=== PATIENT | male | born 1990 | race Asian ===

== ENCOUNTER 2019-09-15 07:40 | Emergency (ER) | payer OTHER ==
[2019-09-15] MEDS ORDERED: KETOROLAC TROMETHAMINE 15 MG VIAL ONE (08:48)
[2019-09-15] MEDS ORDERED: DIPH-TET-PERTUS Vaccine 0.5 ML VIAL (ADACEL) I.M. ONE (08:49)
== END 2019-09-15 09:25 | disposition home or self-care (01) ==
LOC: SED 07:40
DX: S83.91XA Sprain of unspecified site of right knee, initial encounter (principal); X58.XXXA Exposure to other specified factors, initial encounter; Y93.89 Activity, other specified; Y92.89 Other specified places as the place of occurrence of the external cause; Y99.8 Other external cause status
CPT/HCPCS: 73564; 90471; 90715; 96372; 99284; J1885; 99283